=== PATIENT | female | born 1965 | race Native Hawaiian/Other Pacific Islander ===

== ENCOUNTER 2018-08-12 13:16 | Outpatient (CLI) | payer OTHER ==
--- NOTE | 2018-08-12 15:31 | Ultrasound Report ---
Reason: SMALL MASS ON NECK Procedure Date: 08/12/2018 Accession Number: [id number] / [id number] Procedure: US - Head or Neck Soft Tissue CPT Code: FULL RESULT: EXAM: THYROID ULTRASOUND EXAM DATE: 08/12/2018 02:57 PM. CLINICAL HISTORY: SMALL MASS ON NECK. COMPARISON: None. TECHNIQUE: Real time sonographic imaging of the thyroid was performed by the engine hostler. Multiple product representative static images were saved for review. FINDINGS: THYROID GLAND: Right Lobe: 4.5 x 1.4 x 1.7 cm, volume 5.6 cc. Normal background echotexture. Right Lobe Nodules: Superior pole 9 x 4 x 9 mm, spongiform, avascular, benign appearance. Left Lobe: 5.3 x 1.4 x 1.6 cm, volume 6.2 cc. Normal background echotexture. Left Lobe Nodules: 1. Inferior pole 1.5 x 1.2 x 1.2 cm, peripherally vascular, complex, predominantly isoechoic. 2. Mid pole lateral 1.6 x 1.1 x 0.9, peripherally vascular, complex, predominantly isoechoic containing at least one punctate calcification. 3. Mid pole hypoechoic avascular 0.3 x 0.3 x 0.2. Isthmus: 0.3 cm AP. Isthmic Nodules: None. LYMPH NODES: No adenopathy demonstrated in the central or lateral compartment. OTHER: Corresponding to the palpable lump superior to the left lobe of the thyroid is a well-circumscribed lentiform shaped isoechoic avascular structure measuring 2.6 x 0.7 x 2 cm. This has benign appearance possibly a lipoma. IMPRESSION: 1. 2 solid low suspicion left thyroid nodules are present. Follow-up ultrasound in 6 months is suggested. 2. The palpable lump superior to the thyroid has benign features by ultrasound and may represent a lipoma. Again six-month follow-up ultrasound is suggested. Management recommendations are based on 2015 [place] [employer] Management Guidelines for Adult Patients with Thyroid Nodules and Differentiated Thyroid Cancer. RADIA
== END 2018-08-12 13:17 | disposition home or self-care (01) ==
LOC: DI 13:16
PROVIDERS: ATTEND Physician Assistant
DX: E04.2 Nontoxic multinodular goiter (principal)
CPT/HCPCS: 76536

== ENCOUNTER 2018-08-12 13:16 | Outpatient (CLI) | payer OTHER ==
--- NOTE | 2018-08-12 15:44 | Mammography Report ---
Reason: L BREAST PAIN, RIGHT SCREENING Procedure Date: 08/12/2018 Accession Number: [id number] / [id number] Procedure: OSBALDO - Diagnostic Dig Bilat CPT Code: FULL RESULT: EXAM: Diagnostic Dig Bilat, Breast Unilateral Limited DATE: 08/12/2018 2:19 PM CLINICAL HISTORY: New baseline examination. Left lateral breast pain. TECHNIQUE: Bilateral CC and MLO views were obtained. Real-time ultrasound examination of the left breast by the die assembler with saved static images reviewed. COMPARISON: None FINDINGS: MAMMOGRAM: There are scattered fibroglandular densities. No mammographic abnormality is seen in the left breast in the region of lateral pain. No suspicious masses, clustered microcalcifications, or regions of architectural distortion are identified. ULTRASOUND: The area of clinical pain at approximately the 3:00 position left breast 7 cm from the nipple is scanned. There is no cystic or solid mass, abnormal fluid collection, or other abnormality. IMPRESSION: Benign findings RECOMMENDATION: Routine annual screening unless otherwise clinically indicated. BIRADS CATEGORY 2: Benign findings STANDARD QUALIFYING STATEMENTS: 1. This examination was not reviewed with the aid of Computer-Aided Detection (CAD). 2. A negative or benign imaging report should not delay biopsy if clinically suspicious findings are present. Consider surgical consultation if warrented. More than 5% of cancers are not identified by imaging. 3. Dense breasts may obscure an underlying neoplasm. 4. This examination was reviewed with the aid of 3D breast imaging (tomosynthesis).
== END 2018-08-12 13:17 | disposition home or self-care (01) ==
LOC: DI 13:16
PROVIDERS: ATTEND Physician Assistant
DX: N64.4 Mastodynia (principal); E04.2 Nontoxic multinodular goiter
CPT/HCPCS: 76536; 76642; 77066

== ENCOUNTER 2020-10-07 10:23 | Outpatient (CLI) | payer OTHER ==
--- NOTE | 2020-10-08 12:49 | Mammography Report ---
BILATERAL DIGITAL SCREENING MAMMOGRAM 3D/2D: 10/07/2020 CLINICAL: Routine screening. Comparison is made to exams dated: 08/12/2018 ultrasound and 08/12/2018 mammogram - [facility]. There are scattered fibroglandular elements in both breasts. No significant masses, calcifications, or other findings are seen in either breast. There has been no significant interval change. IMPRESSION: NEGATIVE There is no mammographic evidence of malignancy. A 1 year screening mammogram is recommended. This exam was interpreted at Station ID: [id number]. NOTE: For mammograms, a report in lay terms will be sent to the patient. Approximately 15% of breast malignancies will not be visualized mammographically. In the management of a palpable breast mass, a negative mammogram must not discourage biopsy of a clinically suspicious lesion. Electronically Signed By: Lexus gaffney/suzy:10/07/2020 12:13:25 ACR BI-RADS Category 1: Negative 3341F PARENCHYMAL PATTERN: (A) - The breast(s) demonstrate(s) scattered fibroglandular densities. BI-RADS CATEGORY: (1) - 1 RECOMMENDATION: (ANNUAL) - Recommend routine annual screening mammography. [id number] 1 year screening LATERALITY: (B)
== END 2020-10-07 10:24 | disposition home or self-care (01) ==
LOC: DI.N 10:23
PROVIDERS: ATTEND Physician Assistant Medical
DX: Z12.31 Encounter for screening mammogram for malignant neoplasm of breast (principal)

== ENCOUNTER 2020-11-03 13:02 | Outpatient (CLI) | payer OTHER ==
--- NOTE | 2020-11-03 14:00 | Ultrasound Report ---
PROCEDURE: Head or Neck Soft Tissue INDICATIONS: THYROID NODULES, SOFT TISSUE MASS SUPERIOR TO THYR TECHNIQUE: Real-time scanning was performed of the thyroid gland, with image documentation. COMPARISON: 08/12/2018 FINDINGS: Right: Thyroid lobe measures 4.7 x 1.5 x 1.7 centimeters. Left: Thyroid lobe measures 5.3 x 1.4 x 2.3 cm Isthmus: 4 mm thick. Nodule number: 1 Location: Right superior thyroid Size: 0.9 x 0.6 x 0.7 cm, prior 0.9 x 0.4 x 0.9 cm. Composition: Prominently solid Echogenicity: Hypoechoic Shape: wider than tall. Margins: Smooth Echogenic foci: None Total points: 4 ACR TI-RADS category: 4 Nodule number: 2 Location: Left mid thyroid Size: 0.4 x 0.3 x 0.3 cm, prior 0.3 x 0.3 x 0.2 cm. Composition: Solid Echogenicity: Hypoechoic Shape: Wider than tall Margins: Smooth Echogenic foci: None Total points: 4 ACR TI-RADS category: 4 Nodule number: 3 Location: Left mid thyroid Size: 1.7 x 1.3 x 1.3 cm, prior 1.6 x 1.1 x 0.9 cm. Composition: Solid Echogenicity: Isoechoic Shape: wider than tall. Margins: Smooth Echogenic foci: Punctate Total points: 6 ACR TI-RADS category: 4 Nodule number: 4 Location: Left inferior thyroid Size: 1.7 x 1.3 x 1.3 cm, prior 1.5 x 1.2 x 1.2 cm. Composition: Solid Echogenicity: Hyperechoic Shape: wider than tall. Margins: Smooth Echogenic foci: Punctate Total points: 6 ACR TI-RADS category: 4 Nodule number: 5 Location: Anterior to left thyroid lobe Size: 1.9 x 0.7 x 0.7 cm, prior to 0.6 x 0.7 x 2 cm. Composition: Solid Echogenicity: Isoechoic Shape: wider than tall. Margins: Smooth Echogenic foci: None Total points: 3 ACR TI-RADS category: 3 IMPRESSION: Multiple bilateral thyroid nodules are seen, which are similar to 2019. The 2 largest nodules on the left thyroid meet published criteria to recommend ultrasound-guided perc utaneous biopsy. There is a stable nodule also seen anterior to the left thyroid lobe. ACR TI-RADS definitions and recommendations: TI-RADS 1 (benign): 0 points. FNA not needed. TI-RADS 2 (not suspicious): 2 points. FNA not needed. TI-RADS 3 (mildly suspicious): 3 points. ? FNA if 2.5 cm or larger, follow up if 1.5 cm or larger (at 1, 3, and 5 years). TI-RADS 4 (moderately suspicious): 4-6 points. ? FNA if 1.5 cm or larger, follow up if 1 cm or larger (at 1, 2, 3, and 5 years). TI-RADS 5 (highly suspicious): 7 points or more. ? FNA if 1 cm or larger, follow up if 0.5 cm or larger (every year for 5 years). Reviewed by: Michael Ortiz MD on 11/03/2020 12:59 PM [facility] Approved by: Michael Ortiz MD on 11/03/2020 12:59 PM [facility] Station ID: [id number]
== END 2020-11-03 13:03 | disposition home or self-care (01) ==
LOC: DI 13:02
PROVIDERS: ATTEND Physician Assistant Medical
DX: E04.2 Nontoxic multinodular goiter (principal); R22.1 Localized swelling, mass and lump, neck

== ENCOUNTER 2021-02-11 11:53 | Outpatient (CLI) | payer OTHER ==
--- NOTE | 2021-02-11 16:36 | XRAY Report ---
PROCEDURE: Finger(s) RT INDICATIONS: ACUTE GOUT TECHNIQUE: AP hand, 3 views of the third finger(s) acquired. COMPARISON: None FINDINGS: Bones: No fractures or dislocations. No suspicious bony lesions. No erosions. Soft tissues: No suspicious soft tissue calcifications. Soft tissue edema is noted at the third PIP joint. IMPRESSION: Prominent third digit soft tissue edema. No associated osseous erosions. Reviewed by: Katie Kahn MD on 02/11/2021 4:35 PM PDT Approved by: Katie Kahn MD on 02/11/2021 4:35 PM PDT Station ID: [id number]
== END 2021-02-11 23:59 | disposition home or self-care (01) ==
LOC: DI.N 11:53
PROVIDERS: ATTEND Physician Assistant Medical
DX: M10.9 Gout, unspecified (principal); R60.0 Localized edema

== ENCOUNTER 2021-02-17 09:05 | Outpatient (CLI) | payer OTHER ==
[2021-02-17 11:59] LABS: BASOPHILS % (AUTO) 0.4 %; EOSINOPHILS # (AUTO) 0.2 10^3/uL (0.0-0.7); EOSINOPHILS % (AUTO) 2.1 %; HCT - HEMATOCRIT 41.2 % (37.0-47.0); HGB - HEMOGLOBIN 13.3 g/dL (12.0-16.0); LYMPHOCYTES # (AUTO) 1.9 10^3/uL (1.5-3.5); LYMPHOCYTES % (AUTO) 21.2 %; MEAN CORPUSCULAR HEMOGLOBIN 26.7 pg (27.0-31.0); MEAN CORPUSCULAR HGB CONC 32.3 g/dL (32.0-36.0); MEAN CORPUSCULAR VOLUME 82.7 fL (81.0-99.0); MEAN PLATELET VOLUME 9.1 fL (7.9-10.8); MONOCYTES # (AUTO) 0.4 10^3/uL (0.0-1.0); MONOCYTES % (AUTO) 4.8 %; NEUTROPHILS # (AUTO) 6.5 10^3/uL (1.5-6.6); PLT - PLATELET COUNT 352 10^3/uL (130-450); RED BLOOD COUNT 4.98 10^6/uL (4.20-5.40); RED CELL DISTRIBUTION WIDTH 13.2 % (12.0-15.0); WHITE BLOOD COUNT 9.1 x10^3/uL (4.8-10.8)
[2021-02-17 12:17] LABS: URIC ACID 9.6 mg/dL (2.6-7.2)
[2021-02-17 15:49] LABS: CALCIUM 9.5 mg/dL (8.5-10.3); CREATININE 1.1 mg/dL (0.4-1.0)
== END 2021-02-17 23:59 | disposition home or self-care (01) ==
LOC: LAB.N 09:05
PROVIDERS: ATTEND Physician Assistant Medical
DX: L08.9 Local infection of the skin and subcutaneous tissue, unspecified (principal)
CPT/HCPCS: 36415; 80048; 84550; 85025

== ENCOUNTER 2021-06-23 15:58 | Outpatient (CLI) | payer OTHER ==
--- NOTE | 2021-06-23 16:48 | XRAY Report ---
PROCEDURE: Knee 3 View BILAT INDICATIONS: BILATERAL KNEE PX TECHNIQUE: 3 views of each knee are obtained. COMPARISON: None. FINDINGS: Bones: No fractures or dislocations. No suspicious bony lesions. Mild tricompartmental periarticul ar osteophyte formation. Soft tissues: No joint effusion. No suspicious soft tissue calcifications. IMPRESSION: Osteoarthritis. No acute fracture. No osseous lesion. If symptoms and/or clinical suspic ion for pathology continue, further assessment with repeat plain films, or advanced imaging (e.g., CT , MRI, or bone scan) is recommended for further assessment. Reviewed by: Yamil López MD on 06/23/2021 4:47 PM PST Approved by: Yamil López MD on 06/23/2021 4:47 PM PST Station ID: [id number]
== END 2021-06-23 15:59 | disposition home or self-care (01) ==
LOC: DI.N 15:58
PROVIDERS: ATTEND Physician Assistant
DX: M17.0 Bilateral primary osteoarthritis of knee (principal)

== ENCOUNTER 2022-07-28 07:14 | Outpatient (CLI) | payer OTHER ==
--- NOTE | 2022-07-29 08:56 | Ultrasound Report ---
PROCEDURE: Abdomen Limited INDICATIONS: ABNORMAL LEVELS OF OTHER SERUM ENZYMES TECHNIQUE: Real-time focused scanning was performed of the abdomen, with image documentation. COMPARISON: None. FINDINGS: Liver: Liver is mildly enlarged and demonstrates diffusely increased echotexture. A 1.0 x 0.9 x 1.3 cm hypoechoic area is seen in the right hepatic lobe adjacent to gallbladder fossa. Gallbladder: The gallbladder is normal. No gallstones, gallbladder wall thickening, pericholecystic f luid collection or no sonographic Wright sign. Biliary ducts: Intrahepatic bile ducts are non-dilated. Extrahepatic bile duct caliber measures 4.4 mm. Normal is 6-7 mm or less in diameter. Pancreas: Visualized portions of the pancreas are sonographically normal. Right kidney: Right kidney measures 9.9 cm long with cortical thickness 1.58 cm. No hydronephrosis or nephrolithiasis. No solid masses. Miscellaneous: No free abdominal fluid. IMPRESSION: 1. Mild hepatomegaly. 2. Diffusely increased hepatic echotexture, most likely secondary to hepatic fatty infiltration. Othe r hepatocellular disease could have a similar sonographic appearance. Please correlate with liver fun ction tests. 3. There is 1.0 x 0.9 x 1.3 cm hypoechoic area in the right hepatic lobe adjacent to gallbladder moreno a, most compatible with focal fat sparing. Less likely, it could represent a mass. Recommend a short- term follow-up ultrasound in 6 months. Alternatively, CT or MRI could be helpful for further evaluati on. Reviewed by: Clementina Meade MD on 07/29/2022 8:55 AM [facility] Approved by: Clementina Meade MD on 07/29/2022 8:55 AM PST Station ID: [id number]
== END 2022-07-28 07:15 | disposition home or self-care (01) ==
LOC: DI 07:14
PROVIDERS: ATTEND Physician Assistant
DX: R74.8 Abnormal levels of other serum enzymes (principal); R16.0 Hepatomegaly, not elsewhere classified; R93.2 Abnormal findings on diagnostic imaging of liver and biliary tract

== ENCOUNTER 2022-07-31 08:43 | Outpatient (CLI) | payer OTHER ==
--- NOTE | 2022-07-31 10:49 | XRAY Report ---
PROCEDURE: Ankle 3 View RT INDICATIONS: R FOOT,R ANKLE ARTHRITIS TECHNIQUE: 3 views of the ankle were acquired. COMPARISON: Right foot radiographs same day FINDINGS: Bones: No fractures or dislocations. Ankle mortise is normally aligned. Plantar and posterior calc aneal spurs are present. Degenerative changes present at the tibiotalar and talonavicular articulatio ns. Soft tissues: No tibiotalar joint effusion. Soft tissue swelling likely present about the ankle. IMPRESSION: No acute osseous abnormality. If symptoms persist, follow-up radiographs and/or CT or MRI may be help ful for further evaluation. Reviewed by: Faustino Weston MD on 07/31/2022 10:48 AM [facility] Approved by: Faustino Weston MD on 07/31/2022 10:48 AM [facility] Station ID: [id number]
--- NOTE | 2022-07-31 10:54 | XRAY Report ---
PROCEDURE: Foot 3 View RT INDICATIONS: RIGHT FOOT PAIN TECHNIQUE: 3 views of the foot were acquired. COMPARISON: Right ankle radiographs same day FINDINGS: Bones: No acute fractures or dislocations. Moderate bunion deformity, severe first MTP joint degene rative changes. Scattered polyarticular degenerative changes present elsewhere throughout the foot, p rimarily the midfoot Soft tissues: No tibiotalar joint effusion. IMPRESSION: No acute osseous abnormality. If symptoms persist, follow-up radiographs and/or CT or MRI may be help ful for further evaluation. Polyarticular degenerative changes, severe at the first MTP joint. Periarticular lucencies also demon strated indeterminate for subchondral cystic change or erosions. Reviewed by: Faustino Weston MD on 07/31/2022 10:53 AM PST Approved by: Faustino Weston MD on 07/31/2022 10:53 AM PST Station ID: [id number]
== END 2022-07-31 08:44 | disposition home or self-care (01) ==
LOC: DI 08:43
PROVIDERS: ATTEND Family Medicine
DX: M19.071 Primary osteoarthritis, right ankle and foot (principal)

== ENCOUNTER 2023-09-24 07:06 | Outpatient (CLI) | payer OTHER ==
--- NOTE | 2023-09-24 13:38 | Ultrasound Report ---
PROCEDURE: Abdomen Limited INDICATIONS: RUQ PAIN TECHNIQUE: Real-time focused scanning was performed of the abdomen, with image documentation. COMPARISONS: Abdominal ultrasound on July 28, 2022. FINDINGS: Liver: Liver is enlarged measuring 18.8 cm. The parenchyma is diffusely echogenic. There is a hypoec hoic lesion in the right hepatic lobe measuring 0.7 x 0.8 x 0.7 cm which is too small to characterize . This appears different than the previously characterize hypoechoic area adjacent to the gallbladder fossa. Main portal vein is patent with hepatopedal flow. Gallbladder: No stones or sludge. Normal wall thickness measuring 2 mm. Biliary ducts: Intrahepatic bile ducts are non-dilated. Extrahepatic bile duct caliber measures 3 m m. Normal is 6-7 mm or less in diameter, or 10 mm or less post-cholecystectomy. Pancreas: Not well seen. Right kidney: Normal in size and echotexture. Right kidney measures 9.1 cm long. No hydronephrosis o r nephrolithiasis. No solid masses. No complex renal cystic lesions which require follow-up. Aorta: Visualized aorta is normal in caliber at less than 3 cm. IVC: Intrahepatic inferior vena cava is patent. Miscellaneous: No free abdominal fluid. IMPRESSION: 1.Liver is enlarged with diffusely echogenic parenchyma which may be seen in the setting of parenchym al disease such as steatosis. 2.Hypoechoic lesion in the right hepatic lobe measuring 0.7 x 0.8 x 0.7 cm is too small to characteri ze. This appears different from the previously characterized area of focal fatty sparing. Recommend a repeat US in 3 months. Reviewed by: Mikie Ferrara MD on 09/24/2023 1:37 PM PST Approved by: Mikie Ferrara MD on 09/24/2023 1:37 PM PST Station ID: [id number]
== END 2023-09-24 07:07 | disposition home or self-care (01) ==
LOC: DI 07:06
PROVIDERS: ATTEND Physician Assistant
DX: R10.11 Right upper quadrant pain (principal); R93.5 Abnormal findings on diagnostic imaging of other abdominal regions, including retroperitoneum; R16.0 Hepatomegaly, not elsewhere classified; K76.89 Other specified diseases of liver

== ENCOUNTER 2023-10-29 15:14 | Outpatient (CLI) | payer OTHER ==
--- NOTE | 2023-10-29 16:40 | Ultrasound Report ---
PROCEDURE: Soft Tissue Head or Neck INDICATIONS: THYROID NODULES TECHNIQUE: Real-time scanning was performed of the thyroid gland, with image documentation. COMPARISON: 11/03/2020 and 08/12/2018 FINDINGS: Right: Thyroid lobe measures 4.4 x 1.4 x 1.7 cm, and is heterogeneous in echotexture. Left: Thyroid lobe measures 4.8 x 1.3 x 1.9 cm, and is heterogeneous in echotexture. Isthmus: 0.3 cm thick. Nodule number: 1 Location: Upper pole right thyroid lobe Size: 0.9 x 1.2 x 0.6 cm, previously 0.9 x 0.6 x 0.7 cm. Composition: Predominantly solid. Echogenicity: Hypoechoic (2 points). Shape: wider than tall (0 points). Margins: Smooth (0 points). Echogenic foci: None (0 points). Total points: 4 ACR TI-RADS category: TI-RADS 4: Moderately suspicious. Nodule number: 2 Location: Inferior medial right thyroid lobe Size: 0.4 cm, previously 0.4 cm. Composition: Solid. Echogenicity: Hypoechoic. Shape: wider than tall (0 points). Margins: Smooth (0 points). Echogenic foci: None (0 points). Total points: 4 ACR TI-RADS category: TI-RADS 4: Moderately suspicious. Nodule number: 3 Location: Midpole left thyroid lobe. Size: 1.6 x 0.7 x 0.9 cm, previously 1.7 x 1.3 x 1.3 cm. Composition: Solid. Echogenicity: Hypoechoic (2 points). Shape: wider than tall (0 points). Margins: Smooth (0 points). Echogenic foci: None (0 points). Total points: 4 ACR TI-RADS category: TI-RADS 4: Moderately suspicious. Nodule number: 4 Location: Lower pole left thyroid lobe Size: 0.9 x 1.0 x 1.3 cm, previously 1.7 x 1.3 x 1.3 cm. Composition: Solid (2 points). Echogenicity: Hypoechoic (2 points). Shape: wider than tall (0 points). Margins: Smooth (0 points). Echogenic foci: None (0 points). Total points: 4 ACR TI-RADS category: TI-RADS 4: Moderately suspicious. Nodule number: 5 Location: Anterior to left upper pole thyroid lobe Size: 1.8 x 1.8 x 0.6 cm, previously 1.9 x 1.9 x 0.7 cm. Composition: Solid (2 points). Echogenicity: Mixed. Shape: wider than tall (0 points). Margins: Smooth (0 points). Echogenic foci: None (0 points). Total points: 4 ACR TI-RADS category: TI-RADS 4: Moderately suspicious. IMPRESSION: Again noted are multiple moderately suspicious bilateral thyroid nodules. The upper pole right thyroid lobe nodule is slightly increased in size compared to previous study. Other nodules ar e essentially stable or smaller in size. Continue ultrasound follow-up is recommended. ACR TI-RADS definitions and recommendations: TI-RADS 1 (benign): 0 points. FNA not needed. TI-RADS 2 (not suspicious): 2 points. FNA not needed. TI-RADS 3 (mildly suspicious): 3 points. "FNA if 2.5 cm or larger, follow up if 1.5 cm or larger (at 1, 3, and 5 years). TI-RADS 4 (moderately suspicious): 4-6 points. "FNA if 1.5 cm or larger, follow up if 1 cm or larger (at 1, 2, 3, and 5 years). TI-RADS 5 (highly suspicious): 7 points or more. "FNA if 1 cm or larger, follow up if 0.5 cm or larger (every year for 5 years). Reviewed by: Valeriy Alexander MD on 10/29/2023 4:39 PM PDT Approved by: Valeriy Alexander MD on 10/29/2023 4:39 PM PDT Station ID: [id number]
== END 2023-10-29 15:15 | disposition home or self-care (01) ==
LOC: DI 15:14
PROVIDERS: ATTEND Physician Assistant
DX: E04.2 Nontoxic multinodular goiter (principal)